=== PATIENT | female | born 1985 | race Caucasian/White ===

== ENCOUNTER 2017-03-07 09:27 | Emergency (ER) | payer BC ==
[~2017-03-07] VITALS: Ht 149.9 cm; Wt 49.9 kg
[2017-03-07 09:31] VITALS: BP_SYST 132
[2017-03-07] MEDS ORDERED: ONDANSETRON 4 MG ODT TAB PO ONE (09:45)
[2017-03-07 09:59] LABS: BILIRUBIN,URINE NEGATIVE (NEGATIVE); BLOOD, URINE NEGATIVE (NEGATIVE); CLARITY/URINE SL CLOUDY (CLEAR); COLOR,URINE YELLOW (YELLOW); GLUCOSE,URINE NEGATIVE (NEGATIVE); KETONES,URINE NEGATIVE (NEGATIVE); LEUKOCYTE ESTERASE ,URINE 1+ (NEGATIVE); NITRITE, URINE NEGATIVE (NEGATIVE); PROTEIN URINE NEGATIVE (NEGATIVE); UROBILINOGEN,URINE 0.2 (0.2-1.0)
[2017-03-07 10:06] LABS: BACTERIA,URINE MODERATE /HPF (None Seen); MUCUS,URINE 1+ /LPF (None Seen); RBC,URINE 0-3 /HPF (0-3)
[2017-03-07 10:28] LABS: CALCIUM 9.2 mg/dL (8.4-11.0); CREATININE 0.52 mg/dL (0.55-1.30); POTASSIUM 3.6 mmol/L (3.5-5.1)
[2017-03-07 10:30] LABS: PROTHROMBIN TIME 10.4 SECS (9.5-12.5)
[2017-03-07 10:31] LABS: ALBUMIN 4.3 g/dL (3.4-4.8); TOTAL BILIRUBIN 1.2 mg/dL (0.0-1.0)
[2017-03-07 10:40] LABS: BASOPHILS % (AUTO) 0.1 % (0.0-2.0); EOSINOPHILS % (AUTO) 0.4 % (0.0-4.0); HEMATOCRIT 41.2 % (36-48); HEMOGLOBIN 13.6 g/dL (12.0-16.0); LYMPHOCYTES # (AUTO) 0.2 K/uL (1.0-5.5); LYMPHOCYTES % (AUTO) 3.1 % (20.5-51.5); MEAN CORPUSCULAR HEMOGLOBIN 30 pg (27-31); MEAN CORPUSCULAR HGB CONC 33 % (32-36); MEAN CORPUSCULAR VOLUME 91 fL (79.0-98.0); MONOCYTES # (AUTO) 0.2 K/uL (0.0-1.0); MONOCYTES % (AUTO) 2.5 % (1.7-9.3); NEUTROPHILS # (AUTO) 7.3 K/uL (1.8-7.7); NEUTROPHILS % (AUTO) 93.9 % (40.0-70.0); PLATELET COUNT (AUTO) 236 K/uL (130-430); RED BLOOD CELL COUNT(AUTO) 4.55 MIL/uL (4.2-6.2); WHITE BLOOD COUNT (AUTO) 7.7 K/uL (4.8-10.8)
[2017-03-07 11:19] VITALS: BP_SYST 132
== END 2017-03-07 11:19 | disposition home or self-care (01) ==
LOC: SED 09:27
DX: N39.0 Urinary tract infection, site not specified (principal)
CPT/HCPCS: 36415; 74176; 80053; 81000; 81025; 83690; 85025; 85610; 85730; 87086; 99285; Q0162